=== PATIENT | female | born 1975 | race Caucasian/White ===

== ENCOUNTER 2017-02-25 10:04 | Emergency (ER) | payer BC ==
[~2017-02-25] VITALS: Ht 170.2 cm; Wt 103.7 kg
[~2017-02-25 10:04] MED LIST: AMITRIPTYLINE H25 MG; AMITRIPTYLINE H25 MG PO; ANECREAM30 GM TP; AXERT12.5 MG PO; BACTRIM,SEPT1 TABLET PO; DILAUDID2 MG PO; ELAVIL25 MG PO; ENULOSE10 GM/15 M PO; FLOMAX0.4 MG PO; HYDROCHLOROTHIA25 MG PO; HYDROCODON-ACE1 EACH; LEVOFLOXACIN500 MG; LEXAPRO20 MG PO; LISINOPRIL20 MG PO; METOPROLOL SUC100 MG PO; METOPROLOL TAR100 MG PO; NAPROSYN500 MG PO; PERCOCET 5/31 TABLET PO; PERIOGARD480 ML MM; POTASSIUM CHLO10 ME3 PO; PREDNISONE10 M1; PREDNISONE50 MG PO; PROAIR HFA8.5 GM IH; PROMETHAZINE HC25 M1; PROMETHAZINE HC25 M1 PO; RANITIDINE HCL150 MG; RANITIDINE HCL150 MG PO; TYLENOL WITH C1 EACH PO; ZITHROMAX Z-PA250 MG PO; ZOFRAN ODT8 MG PO; ZOFRAN4 MG PO; ZOVIRAX 5% TP; ZOVIRAX200 MG PO
[2017-02-25 11:09] LABS: HEMATOCRIT 41.2 % (36.0-46.0); MCH 31.7 PG (29.0-34.0); MCHC 35.7 G/DL (30.0-36.0); MCV 88.8 FL (83-99); MEAN PLAT.VOLUME 11.1 uM^3 (9.5-12.4); PLATELET COUNT 235 K/uL (156-360); RBC DIS.WIDTH-CV 12.2 % (11.8-14.6); RBC DIS.WIDTH-SD 39.8 % (39-53); RED BLOOD COUNT 4.64 M/uL (3.80-5.20); WHITE BLOOD COUNT 11.7 K/uL (4.1-10.2)
[2017-02-25 11:17] LABS: ADD MIUA? YES; BILIRUBIN MODERATE; BLOOD SMALL; COLOR YELLOW ((YELLOW)); GLUCOSE (STRIP) NEGATIVE; KETONES NEGATIVE; LEUKOCYTES NEGATIVE; NITRITE NEGATIVE; PROTEIN (STRIP) 30
[2017-02-25 11:20] LABS: BACTERIA NONE SEEN /HPF; EPITHELIAL CELLS 1+ /HPF; MUCUS 2+ /LPF; RED BLOOD CELLS 0-5 /HPF (0-5); UCUL ADDED? NO; WHITE BLOOD CELLS 0-5 /HPF (0-5)
[2017-02-25 11:23] LABS: CHLORIDE 111 mEq/L (99-109); POTASSIUM 3.6 mEq/L (3.7-5.4); SODIUM 141 mEq/L (136-147)
[2017-02-25 11:25] LABS: GLUCOSE 93 mg/dL (70-99)
[2017-02-25 11:27] LABS: ANION GAP 10 MEQ/L (2-14)
[2017-02-25 11:29] LABS: GFR ESTIMATE (CALCULATED) > 59 mL/min/
[2017-02-25 11:30] LABS: UREA NITROGEN (BUN) 13 mg/dL (9-23)
[2017-02-25 11:40] LABS: ICTOTEST NEGATIVE
[2017-02-25 11:58] LABS: TOTAL BILIRUBIN 0.4 mg/dL (0.0-1.0)
[2017-02-25 11:59] LABS: ALKALINE PHOSPHATASE 74 IU/L (3-129)
[2017-02-25 12:02] LABS: DIRECT BILIRUBIN 0.1 mg/dL (0.0-0.3)
[2017-02-25] MEDS ORDERED: ZOFRAN4 MG PO (13:13)
[2017-02-25] MEDS ORDERED: FLOMAX0.4 MG PO (13:13)
[2017-02-25] MEDS ORDERED: PERCOCET 5/31 TABLET PO (13:13)
[2017-02-25 13:43] VITALS: BP 131/90
== END 2017-02-25 13:45 | disposition home or self-care (01) ==
LOC: EME 10:04
PROVIDERS: Nurse Practitioner Family
DX: N20.0 Calculus of kidney (principal); Z87.442 Personal history of urinary calculi; I10 Essential (primary) hypertension; G43.909 Migraine, unspecified, not intractable, without status migrainosus; Z88.8 Allergy status to other drugs, medicaments and biological substances; F17.200 Nicotine dependence, unspecified, uncomplicated
CPT/HCPCS: 74176; 80048; 80076; 81003; 85027; 99281; 99285; J1200; J1885; J2270; J2405; J7030